=== PATIENT | female | born 1950 | race Caucasian/White ===

== ENCOUNTER 2016-11-10 07:58 | Outpatient (CLI) ==
[2014-12-02 16:01] VITALS: BMI 27.4
[2016-11-10 08:30] LABS: BASOPHILS % (AUTO) 0.2 % (0.0-3.0); EOSINOPHILS % (AUTO) 0.1 % (0.0-7.0); HEMATOCRIT 42.4 % (37.0-47.0); HEMOGLOBIN 14.1 g/dl (12.0-16.0); IMMATURE GRANULOCYTE % (AUTO) 1.3 % (0.0-5.0); LYMPHOCYTES # (AUTO) 2.5 K/uL (0.60-3.4); LYMPHOCYTES % (AUTO) 15.1 (10.0-50.0); MEAN CORPUSCULAR HEMOGLOBIN 30.1 pg (27.0-31.0); MEAN CORPUSCULAR HGB CONC 33.3 (31.8-35.4); MEAN CORPUSCULAR VOLUME 90.4 fl (81.0-99.0); MONOCYTES % (AUTO) 5.8 (0-10); NEUTROPHILS # (AUTO) 12.7 K/ul (2.0-6.9); NEUTROPHILS % (AUTO) 77.5; PLATELET COUNT 312 10^3/uL (140-440); RED BLOOD COUNT 4.69 10^6/ul (4.20-5.40); WHITE BLOOD COUNT 16.41 K/ul (4.6-10.2)
[2016-11-10 09:11] LABS: ALBUMIN 3.6 g/dL (3.4-5.0); ALBUMIN/GLOBULIN RATIO 1.06; BILIRUBIN,TOTAL 0.2 mg/dL (0.00-1.20); BUN/CREATININE RATIO 9.72; CALCIUM 9.6 mg/dL (8.2-10.2); CHOL/HDL RATIO 3.3 (4.5-5.5); CREATININE 0.72 mg/dL (0.60-1.30)
== END 2016-11-10 07:59 | disposition home or self-care (01) ==
LOC: LAB 07:58
PROVIDERS: ATTEND Nurse Practitioner Family
DX: E78.1 Pure hyperglyceridemia (principal); E78.5 Hyperlipidemia, unspecified; I10 Essential (primary) hypertension; J44.9 Chronic obstructive pulmonary disease, unspecified
CPT/HCPCS: 36415; 80053; 80061; 84443; 85025

== ENCOUNTER 2016-11-12 16:06 | Outpatient (CLI) | payer OTHER ==
[2014-12-02 16:01] VITALS: BMI 27.4
== END 2016-11-12 16:07 | disposition home or self-care (01) ==
LOC: CAR 16:06
PROVIDERS: ATTEND Nurse Practitioner Family
DX: R07.9 Chest pain, unspecified (principal)
CPT/HCPCS: 93005; 93010

== ENCOUNTER 2016-12-07 12:15 | Emergency (ER) | payer OTHER ==
[2016-12-07 12:20] VITALS: BP 148/9; TEMP 97.4; BMI 27.6
--- NOTE | 2016-12-07 12:57 | DI ---
EXAM: Three views of the left ankle. History: Left ankle pain. Findings: No acute fracture or dislocation. Subcutaneous edema. Hardware seen and appears grossly intact. Severe narrowing of the tibiotalar joint. Impression: 1. No acute osseous abnormality. 2. Severe arthritis of the tibiotalar joint. 3. Grossly intact hardware. 4. Subcutaneous edema
--- NOTE | 2016-12-07 13:01 | DI ---
Exam: Three x-rays of the left foot. Comparison: Left ankle x-rays performed on the same day. Reason for exam: Pain. FINDINGS: No acute fracture or dislocation. The joint spaces are relatively well maintained. Part ially imaged operative changes are seen in the medial and lateral malleolus. Impression: No acute fracture or dislocation is seen in the left foot.
--- NOTE | 2016-12-07 13:18 | ED.PDOC ---
General ED Provider: Dr. MARTHA ZELAYA Chief Complaint: Ankle Pain/Injury Stated Complaint: ankle, foot pain Time Seen by Physician: 12:16 (left ankle foot pain) Mode of Arrival: Walk-In Information Source: Patient Exam Limitations: No limitations Primary [facility] and Triage Documentation Reviewed and Agree: Yes Musculoskeletal Complaint Exam - Ankle/Foot Complaint/Exam Location of Injury: Reports: Left, Ankle, Foot Mechanism of Injury: Reports: No known trauma (chronic after and old injury ) Onset/Duration: 1 day Symptoms Are: Reports: Still present Onset of Pain: Reports: Hours Initial Severity: Moderate Current Severity: Moderate Location: Reports: Discrete (left medial ankle ) Character: Reports: Aching, Spasmodic, Stiffness (see photos) Alleviating: Reports: Rest, Position Aggravating: Reports: Movement, Weight bearing, Prolonged standing Able to Bear Weight: Yes Associated Signs and Symptoms: Denies: Swelling, Redness, Bruising, Fever, Weakness, Numbness, Tingling Gout Risk Factors: Reports: >40 years old Related Surgical History: Reports: None Achilles Tendon Abnormality: No Review of Systems - Review Of Systems Constitutional: Reports: No symptoms Eyes: Reports: No symptoms Ears, Nose, Mouth, Throat: Reports: No symptoms Respiratory: Reports: No symptoms Cardiac: Reports: No symptoms GI: Reports: No symptoms : Reports: No symptoms Musculoskeletal: Reports: Joint pain Skin: Reports: No symptoms Neurological: Reports: No symptoms Endocrine: Reports: No symptoms Hematologic/Lymphatic: Reports: No symptoms All Other Systems: Reviewed and Negative Past Medical History - Past Medical History Previously Healthy: No Endocrine: Reports: None Cardiovascular: Reports: Hypertension (carotid stenosis) Respiratory: Reports: COPD Hematological: Reports: None Gastrointestinal: Reports: None Genitourinary: Reports: None Neuro/Psych: Reports: None Musculoskeletal: Reports: Arthritis Cancer: Reports: None Last Menstrual Period: n/a - Surgical History General Surgical History: Reports: Unknown - Family History Family History: Reports: Unknown - Social History Smoking Status: Current every day smoker Hx Substance Use: No Alcohol Screening: None Physical Exam - Physical Exam Appearance: Well-appearing, No pain distress, Well-nourished Eyes: KAYODE, EOMI, Conjunctiva clear ENT: Ears normal, Nose normal, Oropharynx normal Respiratory: Airway patent, Breath sounds clear, Breath sounds equal, Respirations nonlabored Cardiovascular: RRR, Pulses normal, No rub, No murmur GI/: Soft, Nontender, No masses, Bowel sounds normal, No Organomegaly Musculoskeletal: Normal strength, ROM intact, No edema, No calf tenderness Skin: Warm, Dry, Normal color Neurological: Sensation intact, Motor intact, Reflexes intact, Cranial nerves intact, Alert, Oriented Psychiatric: Affect appropriate, Mood appropriate Interpretation - Radiology Interpretation Radiology Interpretation By: Radiologist Radiology Results: No acute changes Critical Care Note - Critical Care Note Total Time (mins): 0 Course - Course Orders, Labs, Meds: Lab Review 12/07/16 12:45 Uric Acid 4.0 Orders Category Date Time Status URIC ACID Stat LAB 12/07/16 12:30 Ordered ANKLE, LEFT MIN 3 VIEWS Stat RADS 12/07/16 12:30 Ordered FOOT, LEFT 3 VIEWS Stat RADS 12/07/16 12:30 Ordered Vital Signs: Temp Pulse Resp BP Pulse Ox 12/07/16 12:16 97.4 F L 87 20 148/9 H 95 Departure - Departure Time of Disposition: 13:17 (with lakhwinder at bedside i went over all films and submitted photos of the foot) Disposition: HOME SELF-CARE Discharge Problem: Ankle pain Instructions: Arthralgia (ED) Condition: Good Pt referred to PMD for follow-up: No Additional Instructions: Please call your Family Physician as soon as possible to schedule a follow-up appointment. Prescriptions: Hydrocodone/Acetaminophen [[place] 10-325 Tablet] 1 each PO Q8HR #7 tablet Allergies/Adverse Reactions: Allergies aspirin Adverse Reaction (Verified 12/07/16 12:20) Home Medications: Ambulatory Orders Hydrocodone/Acetaminophen [[place] 10-325 Tablet] 1 each PO PRN PRN 03/14/14 Hydrocodone/Acetaminophen [[place] 10-325 Tablet] 1 each PO Q8HR #7 tablet Disposition Discussed With: Patient
== END 2016-12-07 13:26 | disposition home or self-care (01) ==
LOC: ED 12:15
DX: M25.572 Pain in left ankle and joints of left foot (principal); F17.210 Nicotine dependence, cigarettes, uncomplicated
CPT/HCPCS: 36415; 84550; 99283

== ENCOUNTER 2017-02-06 18:47 | Emergency (ER) ==
[2017-02-06 18:47] VITALS: BMI 27.6
[2017-02-06 18:52] VITALS: BP 153/83; TEMP 97.6
[2017-02-06] MEDS: DECADRON 4 MG/ML SDV IM STA (19:11)
[2017-02-06] MEDS: DILAUDID 2 MG/ML SYRINGE IM STA (19:12)
[2017-02-06] MEDS: TORADOL IM STA (19:18)
--- NOTE | 2017-02-06 19:27 | CT ---
EXAM: CT scan cervical spine HISTORY: Neck pain COMPARISON: None. FINDINGS: Contiguous axial images obtained through the cervical spine utilizing 2-mm collimation. Sagittal and coronal reconstructions were imaged and reviewed.. There is straightening of the upper cervical spine. The vertebral bodies are normal in height. There is 2.4 mm anterolisthesis of C3 i n relation to C4 Degenerate disc disease is noted at C4-C5 and C5-C6 with milder changes of C6-C7.. At C3-C4 there is mild spondylitic bulge with bilateral neural foraminal narrowing secondary to u ncovertebral and left-sided facet arthropathy. At C4-C5 there is moderate leftward disc bulge which narrows the AP dimension of the central canal. There is bilateral neural foraminal narrowing. At C5-C6 spondylitic bulge narrows the AP dimension of the central canal and both neural foramen. At C 6-C7 the central canal foramen are patent. IMPRESSION: Straightening upper cervical spine. Degenerate disc disease C4-C5 and C6-C7 Multilevel central canal and foraminal stenosis as described.
--- NOTE | 2017-02-06 19:39 | ED.PDOC ---
General ED Provider: Dr. AGUS GRUBBS-ER Chief Complaint: Extremity Pain/Injury Stated Complaint: my neck hurts to move--it hurts to look up or to the right-- sees pain management and gets cervical injections q 3mos--denies cp or dyspnea Time Seen by Physician: 18:50 Mode of Arrival: Walk-In Information Source: Patient Exam Limitations: No limitations Primary Care Provider: RICHI HAN Nursing and Triage Documentation Reviewed and Agree: Yes Musculoskeletal Complaint Exam - Neck Pain Complaint/Exam Mechanism of Injury: Reports: No known trauma Onset/Duration: several mos Symptoms Are: Still present Timing: Intermittent Episodes Lasting: Weeks Initial Severity: Moderate Current Severity: Moderate Location: Reports: Discrete Character: Reports: Dull, Aching, Stiffness Aggravating: Reports: Position, Movement Alleviating: Reports: Position Associated Signs and Symptoms: Denies: Swelling, Redness, Bruising, Fever, Nuchal rigidity, Weakness, Headache, Paresthesia Related History: Reports: Previous neck injury Meningitis Risk Factors: Reports: None Cervical Spine Injury Risk Factors: Reports: None Carotid Bruit Present: No Pain on Passive Flexion: Yes Positive Kernig's Sign: No ROM Limited In: Present: Flexion, Extension, Right, Left, Side bending, Rotation Pain Located at: posterior neck Tenderness: Present: Paraspinal Radiates to: Present: Right arm. Absent: Left arm, Other Focal Weakness: Present: None Focal Sensory Loss: Reports: None Differential Diagnoses: Arthritis, Dystonia, Torticollis, Other Review of Systems - Review Of Systems Constitutional: Reports: No symptoms Eyes: Reports: No symptoms Ears, Nose, Mouth, Throat: Reports: No symptoms Respiratory: Reports: No symptoms Cardiac: Reports: No symptoms GI: Reports: No symptoms : Reports: No symptoms Musculoskeletal: Reports: Neck pain Skin: Reports: No symptoms Neurological: Reports: No symptoms Endocrine: Reports: No symptoms Hematologic/Lymphatic: Reports: No symptoms All Other Systems: Reviewed and Negative Past Medical History - Past Medical History Previously Healthy: No Endocrine: Reports: None Cardiovascular: Reports: Hypertension (carotid stenosis) Respiratory: Reports: COPD Hematological: Reports: None Gastrointestinal: Reports: None Genitourinary: Reports: None Neuro/Psych: Reports: None Musculoskeletal: Reports: Arthritis Cancer: Reports: None Last Menstrual Period: YEARS - Surgical History General Surgical History: Reports: Unknown - Family History Family History: Reports: Unknown - Social History Smoking Status: Current every day smoker Hx Substance Use: No Alcohol Screening: None Lives: With family - Immunizations Tetanus Shot up to Date: Yes Physical Exam - Physical Exam Appearance: Well-appearing, No pain distress, Well-nourished Pain Distress: Moderate Eyes: KAYODE ENT: Ears normal, Nose normal, Oropharynx normal Neck: Supple Respiratory: Airway patent, Breath sounds clear, Breath sounds equal, Respirations nonlabored Cardiovascular: RRR GI/: Soft, Nontender, No masses, Bowel sounds normal, No Organomegaly Musculoskeletal: Limited ROM Skin: Warm, Dry, Normal color Neurological: Sensation intact, Motor intact, Reflexes intact, Cranial nerves intact, Alert, Oriented Psychiatric: Affect appropriate Interpretation - Radiology Interpretation Radiology Interpretation By: Radiologist Radiology Results: Positive Exam Interpreted: CT Scan Re-Evaluation - Re-Evaluation Time of Re-Evaluation: 19:45 Status: Improved Vital Signs Stable: Yes Pain Level: 2 Appearance: NAD Lungs: Clear Skin: Warm and Dry Neuro: Alert and Oriented X3 CV: RRR Critical Care Note - Critical Care Note Total Time (mins): 0 Course - Course Orders, Labs, Meds: Orders Category Date Time Status Dexamethasone 4 mg/ml Inj [Decadron 4 mg/ml Sdv] MEDS 02/06/17 19:03 Discontinued 4 mg IM ONCE STA Hydromorphone HCl/Pf [Dilaudid 2 mg/ml Syringe] MEDS 02/06/17 19:03 Discontinued 2 mg IM ONCE STA Ketorolac Tromethamine [Toradol] MEDS 02/06/17 19:03 Discontinued 60 mg IM ONCE STA CT CERVICAL SPINE W/O CONTRAST Stat RADS 02/06/17 19:04 Completed Medications Discontinued Medications Generic Name Dose Route Start Last Admin Trade Name Freq PRN Reason Stop Dose Admin Dexamethasone Sodium Phosphate 4 mg 02/06/17 19:03 02/06/17 19:11 Decadron 4 Mg/Ml Sdv IM 02/06/17 19:04 4 mg ONCE STA Administration Hydromorphone HCl 2 mg 02/06/17 19:03 02/06/17 19:12 Dilaudid 2 Mg/Ml Syringe IM 02/06/17 19:04 2 mg ONCE STA Administration Ketorolac Tromethamine 60 mg 02/06/17 19:03 02/06/17 19:18 Toradol IM 02/06/17 19:04 60 mg ONCE STA Administration Vital Signs: Temp Pulse Resp BP Pulse Ox 02/06/17 18:47 97.6 F 72 20 153/83 H 94 L Departure - Departure Time of Disposition: 19:40 Disposition: HOME SELF-CARE Discharge Problem: Cervical spinal stenosis Instructions: Cervical Spinal Stenosis (ED), Degenerative Disc Disease (ED) Condition: Good Pt referred to PMD for follow-up: Yes Additional Instructions: f/u with pain managment or call pcp if pain worsens or if any change in symptoms Allergies/Adverse Reactions: Allergies aspirin Adverse Reaction (Verified 02/06/17 18:52) Home Medications: Ambulatory Orders Hydrocodone/Acetaminophen [[place] 10-325 Tablet] 1 each PO PRN PRN 03/14/14 Disposition Discussed With: Patient
== END 2017-02-06 20:03 | disposition home or self-care (01) ==
LOC: ED 18:47
DX: M48.02 Spinal stenosis, cervical region (principal); M50.321 Other cervical disc degeneration at C4-C5 level; M50.323 Other cervical disc degeneration at C6-C7 level; F17.210 Nicotine dependence, cigarettes, uncomplicated
CPT/HCPCS: 96372; 99283

== ENCOUNTER 2017-02-25 12:35 | Outpatient (CLI) ==
[2017-02-25 12:50] LABS: CREATININE 0.7 mg/dL (0.60-1.30)
== END 2017-02-25 12:36 | disposition home or self-care (01) ==
LOC: LAB 12:35
PROVIDERS: ATTEND Nurse Practitioner Family
DX: I10 Essential (primary) hypertension (principal); Y63.3 Inadvertent exposure of patient to radiation during medical care
CPT/HCPCS: 36415; 82565

== ENCOUNTER 2017-05-30 10:09 | Outpatient (CLI) ==
[2017-05-30 10:22] LABS: BASOPHILS % (AUTO) 0.3 % (0.0-3.0); EOSINOPHILS # (AUTO) 0.1 K/ul (0.0-0.7); EOSINOPHILS % (AUTO) 0.7 % (0.0-7.0); HEMATOCRIT 42.9 % (37.0-47.0); HEMOGLOBIN 14.2 g/dl (12.0-16.0); IMMATURE GRANULOCYTE % (AUTO) 0.4 % (0.0-5.0); LYMPHOCYTES # (AUTO) 3.1 K/uL (0.60-3.4); LYMPHOCYTES % (AUTO) 21.5 (10.0-50.0); MEAN CORPUSCULAR HEMOGLOBIN 30.5 pg (27.0-31.0); MEAN CORPUSCULAR HGB CONC 33.1 (31.8-35.4); MEAN CORPUSCULAR VOLUME 92.1 fl (81.0-99.0); MONOCYTES # (AUTO) 0.9 K/uL (0.4-2.0); MONOCYTES % (AUTO) 6.3 (0-10); NEUTROPHILS % (AUTO) 70.8; PLATELET COUNT 320 10^3/uL (140-440); RED BLOOD COUNT 4.66 10^6/ul (4.20-5.40); WHITE BLOOD COUNT 14.18 K/ul (4.6-10.2)
[2017-05-30 10:43] LABS: ALBUMIN 3.4 g/dL (3.4-5.0); ALBUMIN/GLOBULIN RATIO 0.89; ANION GAP 11.9; BILIRUBIN,TOTAL 0.28 mg/dL (0.00-1.20); BUN/CREATININE RATIO 10.81; CALCIUM 9.7 mg/dL (8.2-10.2); CHOL/HDL RATIO 3.9 (4.5-5.5); CREATININE 0.74 mg/dL (0.60-1.30); POTASSIUM 3.9 mmol/L (3.5-5.10); TOTAL PROTEIN 7.2 g/dL (5.8-8.1)
== END 2017-05-30 10:10 | disposition home or self-care (01) ==
LOC: LAB 10:09
PROVIDERS: ATTEND Nurse Practitioner Family
DX: J44.9 Chronic obstructive pulmonary disease, unspecified (principal); E78.5 Hyperlipidemia, unspecified; R73.9 Hyperglycemia, unspecified
CPT/HCPCS: 36415; 80053; 80061; 83036; 85025

== ENCOUNTER 2017-05-31 08:46 | Outpatient (CLI) ==
--- NOTE | 2017-05-31 10:11 | CT ---
EXAM: CT of the chest with and without contrast History: Follow-up lung nodules. lung cancer Comparison: Chest CT 04/29/2016 Technique: Multiplanar CT images through the thorax were obtained with and without the administratio n of IV contrast Findings: Heart size is normal. Coronary calcifications. No pericardial effusion. Great vessels a re unremarkable. Calcified granulomas again seen within the thorax. No pathologically enlarged thor acic lymph nodes. Emphysema again identified. No consolidation. No pleural fluid and no pneumothor ax. No change in the pulmonary micronodules. No developing lung nodules. With the visualized upper abdomen, no acute findings. The liver is probably fatty. No acute osseous abnormalities. Impression: 1. No acute cardiopulmonary process. 2. Coronary artery disease. 3. No change in the pulmonary micronodules. No developing lung nodules. 4. Emphysema. 5. Probable fatty liver
== END 2017-05-31 08:47 | disposition home or self-care (01) ==
LOC: RAD 08:46
PROVIDERS: ATTEND Nurse Practitioner Family
DX: Z85.118 Personal history of other malignant neoplasm of bronchus and lung (principal); Z90.2 Acquired absence of lung [part of]

== ENCOUNTER 2017-08-14 15:37 | Emergency (ER) | payer OTHER ==
[2017-08-14 15:44] VITALS: BP 111/62; TEMP 98.5; BMI 26.2
--- NOTE | 2017-08-14 17:12 | CT ---
EXAM: CT chest without contrast HISTORY: Cough. Lung cancer history. TECHNIQUE: Multi-slice transaxial helical. Coronal and sagital reformations were performed. COMPARISON: 05/31/2017. FINDINGS: The heart is normal in size. Coronary artery calcifications are present. Calcified plaques are pres ent within the thoracic aorta. Mediastinal and perihilar calcified granulomas/lymph nodes are presen t. Lymph node on the upper limits of normal in size in the pretracheal location measures 9 [address] in shobha rt axis. Subcarinal enlarged lymph node measuring up to 11 mm is present which appears partly calcif ied. Visualized thyroid appears unremarkable. There is no axillary adenopathy. Small hiatal hernia is pr esent. The gallbladder appears dilated measuring up to 5.3 cm in diameter. Calcified granulomas are present within the spleen. Pancreas appears atrophic. Otherwise the partially imaged upper abdomen appears unremarkable within the confines of a noncontrast exam. Left-sided thoracotomy changes are a gain seen. No osteoblastic or osteolytic lesion is seen. Mild to moderate emphysematous changes of the lungs are present. Bilateral scattered calcified granu gracie are present. The left upper lung nodule measures 6 mm in diameter, previously measuring 4 mm ( axial image 28). The basilar 3.5 mm pulmonary nodule is present which may be minimally increased sinc e prior exam, previously measuring up to 2.6 mm. Right basilar dependent atelectasis is present. rway thickening is present. No definite focal airspace opacity or pleural effusion is seen. IMPRESSION: 1. No acute cardiopulmonary findings. 2. Interval enlarged of left upper lobe pulmonary nodule measuring 6 mm, previously 4 mm. Worsening metastatic disease cannot be excluded. Recommend follow-up CT chest in 3 months. 3. Questionable minimally increased size of left basilar pulmonary nodule. This can be also followe d on the subsequent imaging. 4. Mild to moderate pulmonary emphysema. 5. Central airway thickening which can be seen with bronchitis/bronchiolitis. 6. Atherosclerosis including coronary disease. 7. Dilation of the gallbladder. This can be related n.p.o. status versus acute cholecystitis. Yeny elate with any right upper quadrant abdominal pain. 8. Small hiatal hernia. 9. Mild mediastinal adenopathy which is nonspecific.
--- NOTE | 2017-08-14 17:35 | ED.PDOC ---
General ED Provider: Dr. MARTHA ZELAYA Chief Complaint: Respiratory Complaint Stated Complaint: flu like symptoms Time Seen by Physician: 15:40 (seen with nursing staff and PA student) Mode of Arrival: Walk-In Information Source: Patient Exam Limitations: No limitations Primary Care Provider: RICHI HAN Nursing and Triage Documentation Reviewed and Agree: Yes Reviewed sepsis parameters & appropriate labs ordered?: Yes System Inflammatory Response Syndrome: Not Applicable Sepsis Protocol: For patient's 13 years and over: Temp is 96.8 and below OR 101 and greater Pulse >90 BPM Resp >20/minute Acutely Altered Mental Status Are patient's symptoms suggestive of a new infection, such as: -Pneumonia -Skin, Soft Tissue -Endocarditis -UTI -Bone, Joint Infection -Implantable Device -Acute Abdominal Infection -Wound Infection -Meningitis -Blood Stream Catheter Infection -Unknown System Inflammatory Response Syndrome: Not Applicable Respiratory Complaint Exam - Respiratory Complaint/Exam Onset/Duration: 4 days Symptoms Are: Still present Timing: Intermittent Initial Severity: Mild Current Severity: Mild Location: Nose, Throat, Chest Character: Reports: Non-productive cough Aggravating: Reports: URI Alleviating: Reports: Spontaneous resolution Associated Signs and Symptoms: Reports: URI, Nasal congestion. Denies: Rapid breathing, Dyspnea, Fever, Chills, Chest pain, Pleuritic chest pain, Wheezing, Hemoptysis, Dizziness, Calf pain, Calf swelling, Edema, Hoarseness, Sinus discomfort, Vomiting, Sore throat, Weight loss, Decreased oral intake, Increased thirst, Increased appetite, Increased urination Related History: Reports: Similar episode History of Healthcare-Acquired Pneumonia: No Related Surgical History: Reports: None Pseudomonas Risk Factors: Reports: None Tuberculosis Risk Factors: Reports: None Status Asthmaticus Risk Factors: Reports: None Home Oxygen Use: No Recent Stress Test: No Recent Echo/LV Function: No Current Antibiotic Use: No Current Asthma Medication Use: No Respiratory Distress: None Inadequate Respiratory Effort: No Dysphagia Present: No Stridor Present: No JVD Present: No Accessory Muscle Use: No Retractions: Not Present Sinus Tenderness: None Grunting Respirations: No Kussmaul Respirations: No Differential Diagnoses: Pneumonia, Bronchitis Review of Systems - Review Of Systems Constitutional: Reports: Malaise, Weakness Eyes: Reports: No symptoms Ears, Nose, Mouth, Throat: Reports: No symptoms Respiratory: Reports: Cough Cardiac: Reports: No symptoms GI: Reports: No symptoms : Reports: No symptoms Musculoskeletal: Reports: No symptoms Skin: Reports: No symptoms Neurological: Reports: No symptoms Endocrine: Reports: No symptoms Hematologic/Lymphatic: Reports: No symptoms All Other Systems: Reviewed and Negative Past Medical History - Past Medical History Previously Healthy: No Endocrine: Reports: None Cardiovascular: Reports: Hypertension (carotid stenosis) Respiratory: Reports: COPD Hematological: Reports: None Gastrointestinal: Reports: None Genitourinary: Reports: None Neuro/Psych: Reports: None Musculoskeletal: Reports: Arthritis Cancer: Reports: None Last Menstrual Period: menopause - Surgical History General Surgical History: Reports: Unknown - Family History Family History: Reports: Unknown - Social History Smoking Status: Current every day smoker Hx Substance Use: No Alcohol Screening: None Physical Exam - Physical Exam Appearance: Well-appearing, No pain distress, Well-nourished Eyes: KAYODE, EOMI, Conjunctiva clear ENT: Ears normal, Nose normal, Oropharynx normal Respiratory: Airway patent, Breath sounds clear, Breath sounds equal, Respirations nonlabored Cardiovascular: RRR, Pulses normal, No rub, No murmur GI/: Soft, Nontender, No masses, Bowel sounds normal, No Organomegaly Musculoskeletal: Normal strength, ROM intact, No edema, No calf tenderness Skin: Warm, Dry, Normal color Neurological: Sensation intact, Motor intact, Reflexes intact, Cranial nerves intact, Alert, Oriented Psychiatric: Affect appropriate, Mood appropriate Interpretation - Radiology Interpretation Radiology Interpretation By: Radiologist Radiology Results: No acute changes Exam Interpreted: CT Scan Critical Care Note - Critical Care Note Total Time (mins): 0 Course - Course Hematology/Chemistry: 08/14/17 16:45 08/14/17 16:45 Orders, Labs, Meds: Lab Review 08/14/17 08/14/17 08/14/17 15:51 16:45 16:45 WBC 5.72 RBC 4.59 Hgb 14.1 Hct 42.9 MCV 93.5 MCH 30.7 MCHC 32.9 RDW Coeff of [place] 13.6 Plt Count 170 Immature Gran % (Auto) 0.5 Neut % (Auto) 67.4 Lymph % (Auto) 23.3 [place] % (Auto) 8.4 Eos % (Auto) 0.2 Baso % (Auto) 0.2 Immature Gran # (Auto) 0.0 Neut # 3.9 Lymph # 1.3 [place] # 0.5 Eos # 0.0 Baso # 0.0 Sodium 136 Potassium 3.7 Chloride 103 Carbon Dioxide 24 Anion Gap 12.7 BUN 8 Creatinine 0.71 Estimated GFR (MDRD) 82.00 BUN/Creatinine Ratio 11.26 Glucose 89 Calcium 8.7 Total Bilirubin < 0.3 AST 49 H ALT 36 Alkaline Phosphatase 86 Total Protein 6.9 Albumin 3.4 Globulin 3.5 Albumin/Globulin Ratio 0.97 Influenza A (Rapid) Negative by naat Influenza B (Rapid) Positive by naat H Orders Category Date Time Status BLOOD CULTURE Stat LAB 08/14/17 16:31 Ordered CBC W/ AUTO DIFF Stat LAB 08/14/17 16:31 Ordered COMPREHENSIVE METABOLIC PANEL Stat LAB 08/14/17 16:31 Ordered FLU A & B MOLECULAR [FLU A/B MOLECULAR] Stat LAB 08/14/17 15:51 Received MOLECULAR GROUP A STREP Stat LAB 08/14/17 15:51 Received URINALYSIS C & S IF INDICATED Stat LAB 08/14/17 16:[address] CHEST W/O CONTRAST Stat RADS 08/14/17 16:34 Ordered Vital Signs: Temp Pulse Resp BP Pulse Ox 08/14/17 15:37 98.5 F 87 20 111/62 88 L Departure - Departure Time of Disposition: 17:34 Disposition: HOME SELF-CARE Discharge Problem: Influenza Instructions: Influenza (ED) Condition: Good Pt referred to PMD for follow-up: Yes IPMP verified?: Yes Additional Instructions: Please call your Family Physician as soon as possible to schedule a follow-up appointment. Allergies/Adverse Reactions: Allergies aspirin Adverse Reaction (Verified 08/14/17 15:47) Home Medications: Ambulatory Orders Hydrocodone/Acetaminophen [[place] 10-325 Tablet] 1 each PO PRN PRN 03/14/14 Gabapentin [Neurontin] 400 mg PO QID tab-cap 02/25/17
== END 2017-08-14 17:40 | disposition home or self-care (01) ==
LOC: ED 15:37
DX: J10.1 Influenza due to other identified influenza virus with other respiratory manifestations (principal); F17.210 Nicotine dependence, cigarettes, uncomplicated
CPT/HCPCS: 36415; 80053; 85025; 87040; 87502; 87651; 99283

== ENCOUNTER 2017-11-15 11:46 | Outpatient (CLI) | payer OTHER | END 2017-11-15 11:47 | disposition home or self-care (01) | LOC: CAR 11:46 | PROVIDERS: ATTEND Nurse Practitioner Family | DX: R07.89 Other chest pain (principal) | CPT/HCPCS: 93005; 93010 ==

== ENCOUNTER 2018-04-03 14:15 | Outpatient (CLI) | payer OTHER | END 2018-04-03 14:16 | disposition home or self-care (01) | LOC: RHC-LAB 14:15 | PROVIDERS: ATTEND Nurse Practitioner Family | DX: I10 Essential (primary) hypertension (principal); Z86.73 Personal history of transient ischemic attack (TIA), and cerebral infarction without residual deficits; E78.1 Pure hyperglyceridemia; E78.5 Hyperlipidemia, unspecified | CPT/HCPCS: 36415; 80053; 80061; 84443; 85025 ==

== ENCOUNTER 2018-12-04 12:06 | Outpatient (CLI) | payer OTHER | END 2018-12-04 12:07 | disposition home or self-care (01) | LOC: RHC-LAB 12:06 | PROVIDERS: ATTEND Nurse Practitioner Family | DX: I10 Essential (primary) hypertension (principal); E78.5 Hyperlipidemia, unspecified ==

== ENCOUNTER 2021-06-08 11:31 | Observation (INO) ==
[2021-06-08] MEDS ORDERED: DUONEB NEB STA (11:38)
[2021-06-08] MEDS ORDERED: SODIUM CHLORIDE 1,000 ML IV STA (11:38)
[2021-06-08] MEDS ORDERED: DECADRON IVP ONE (11:38)
[2021-06-08 11:41] VITALS: BMI 20.6
--- NOTE | 2021-06-08 11:53 | ED.PDOC ---
General ED Provider: Dr. ARTHUR GALLEGOS Chief Complaint: Respiratory Complaint Stated Complaint: Pt presents with cough, fever and SOB. Pt is a smoker with COPD. She has recently been around her daughter who has COVID. She is vaccinated but over the last 3-4 days she has had sxs. She is concerned that she may have COVID. She has a cough and chest soreness on the left side. She denies any pain on inspiration. Denies any N/V/AP. Nothing else makes the sxs better or worse and they are mild but persistent in nature. Time Seen by Provider: 06/08/21 11:33 Information Source: Patient Primary Care Provider: UMESH RICH PA-C Nursing and Triage Documentation Reviewed and Agree: Yes Does patient meet sepsis criteria?: No If yes, has appropriate treatment been initiated?: No System Inflammatory Response Syndrome: Not Applicable Sepsis Protocol: For patient's 13 years and over: Temp is 96.8 and below OR 101 and greater Pulse >90 BPM Resp >20/minute Acutely Altered Mental Status Are patient's symptoms suggestive of a new infection, such as: -Pneumonia -Skin, Soft Tissue -Endocarditis -UTI -Bone, Joint Infection -Implantable Device -Acute Abdominal Infection -Wound Infection -Meningitis -Blood Stream Catheter Infection -Unknown Review of Systems Review Of Systems Constitutional: Reports Chills and Fever Eyes: Reports No symptoms Ears, Nose, Mouth, Throat: Reports No symptoms Respiratory: Reports Cough, Short of air and Wheezing Cardiac: Reports Chest pain (left chest discomfort) GI: Reports No symptoms : Reports No symptoms Musculoskeletal: Reports No symptoms Skin: Reports No symptoms Neurological: Reports No symptoms Endocrine: Reports No symptoms Hematologic/Lymphatic: Reports No symptoms All Other Systems: Reviewed and Negative [facility] Medical History Cataract Chronic obstructive pulmonary disease Colonoscopy refused COPD exacerbation COPD exacerbation Cough Fever GERD (gastroesophageal reflux disease) Heart palpitations Hypertension Intermittent chest pain Low grade fever Nerve pain Overactive bladder Polycystic ovaries Shortness of breath Tobacco use Family History Grandfather/Grandmother Diabetes aunt Diabetes FATHER Lung cancer Mother COPD (chronic obstructive pulmonary disease) BROTHER No problems noted. BROTHER Cardiac disease BROTHER Cirrhosis of liver BROTHER No problems noted. SISTER No problems noted. 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 Current occupational exposures/hazards: No Pets and animals: Yes Leisure activites: music History of recent travel: No Sexually active: No Do you think of yourself as: straight/heterosexual Current gender identity: female Seatbelt use: always Helmet use: No Drives intoxicated or rides with intoxicated reach lift truck driver: No Water heater temperature set < 120 degrees: Yes Working smoke detector in home: Yes Fire extinguisher in home: No Carbon monoxide detector in home: No Firearms in home: No Surgical History History of lobectomy of lung History of musculoskeletal system surgery History of tubal ligation Status post surgical removal of malignant neoplasm of skin Status post tonsillectomy Female Reproductive History Menstrual Hx Hysterectomy: No Hx Tubal Ligation: No Physical Exam Physical Exam Appearance: Reports Well-appearing, No pain distress and Well-nourished Ill-appearing: Mild Pain Distress: None Eyes: Reports KAYODE, EOMI and Conjunctiva clear ENT: Reports Not Examined Neck: Supple Respiratory: Reports Airway patent, Breath sounds equal, Respirations nonlabored and Wheezes (bilateral insp/exp wheezing without pain on inspiration) Cardiovascular: Reports RRR, Pulses normal, No rub and No murmur GI/: Reports Soft, Nontender, No masses, Bowel sounds normal and No Org anomegaly Musculoskeletal: Reports Normal strength, ROM intact, No edema and No calf tenderness Skin: Reports Warm, Dry and Normal color Neurological: Reports Sensation intact, Motor intact, Reflexes intact, Cranial nerves intact, Alert and Oriented Psychiatric: Reports Affect appropriate and Mood appropriate Interpretation EKG Interpretation Time of EKG #1: 12:00 Rate: Tachy Rhythm: Sinus Ectopy: None [place]: Left ST Segment: Normal Interpretation: Left atrial enlargement Critical Care Note Critical Care Note Total Critical Care Time (mins): 0 Course Course Hematology/Chemistry: 06/08/21 11:56 12 11:56 Orders, Labs, Meds: Lab Review 06/08/21 06/08/21 12 11:56 11:56 12:00 WBC 8.32 RBC 3.99 L Hgb 12.1 Hct 37.3 MCV 93.5 MCH 30.3 MCHC 32.4 RDW Coeff of [place] 12.7 Plt Count 265 Immature Gran % (Auto) 0.4 Neut % (Auto) 82.2 H Lymph % (Auto) 8.2 L [place] % (Auto) 8.8 Eos % (Auto) 0.0 Baso % (Auto) 0.4 Neut # (Auto) 6.9 Lymph # (Auto) 0.7 [place] # (Auto) 0.7 Eos # (Auto) 0.0 Baso # (Auto) 0.0 Immature Gran # (Auto) 0.0 Sodium 135.8 Potassium 4.27 Chloride 103.7 Carbon Dioxide 26.0 Anion Gap 10.37 BUN 8.2 Creatinine 0.53 L Estimated GFR (MDRD) 113.00 BUN/Creatinine Ratio 15.47 Glucose 112.4 H Calcium 8.56 Magnesium 1.84 Total Bilirubin 0.43 AST 26.6 ALT 15.6 Alkaline Phosphatase 76.4 Total Creatine Kinase 77.3 Troponin I 0.412 H Total Protein 7.14 Albumin 4.02 Globulin 3.12 Albumin/Globulin Ratio 1.28 Amylase 35.5 Lipase 18.2 L Adenovirus (PCR) Not detected B. pertussis DNA (PCR) Not detected B.parapertussis DNA PCR Not detected C. pneumoniae DNA (PCR) Not detected Coronavirus OC43 (PCR) Not detected Coronavirus HKU1 (PCR) Not detected Coronavirus 229E (PCR) Not detected Coronavirus NL63 (PCR) Not detected Human Metapneumovir PCR Not detected Influenza Type A (PCR) Not detected Influenza B (RT-PCR) Not detected M. pneumoniae (PCR) Not detected Parainfluenza 1 (PCR) Not detected Parainfluenza 2 (PCR) Not detected Parainfluenza 3 (PCR) Not detected Parainfluenza 4 (PCR) Not detected RSV (PCR) Detected H Entero/Rhino (PCR) Not detected SARS-CoV-2 (PCR) Not detected Orders Category Date Time Status EKG-(ED ONLY) Stat CARDIO 06/08/21 11:39 Completed NEBULIZER TREATMENT Stat CARDIO 06/08/21 11:39 Completed AMYLASE Stat LAB 06/08/21 11:56 Completed CBC W/ AUTO DIFF Stat LAB 06/08/21 11:56 Completed COMPREHENSIVE METABOLIC PANEL Stat LAB 06/08/21 11:56 Completed CREATINE KINASE Stat LAB 06/08/21 11:56 Completed LIPASE Stat LAB 06/08/21 11:56 Completed MAGNESIUM Stat LAB 06/08/21 11:56 Completed RESPIRATORY PANEL 2.1 (PCR) Stat LAB 06/08/21 12:00 Completed TROPONIN I Stat LAB 06/08/21 11:56 Completed Aspirin [Aspirin Chewable] MEDS 06/08/21 13:44 Stat 324 mg PO ONCE STA Dexamethasone Sod Phosphate [Decadron] MEDS 06/08/21 11:38 Discontinued 10 mg IVP ONCE ONE Ipratropium/Albuterol Neb [Duoneb] MEDS 06/08/21 11:38 Discontinued 3 ml NEB ONCE STA Sodium Chloride 0.9% [Sodium Chloride] 1,000 ml MEDS 06/08/21 11:38 Discontinued IV BOLUS CHEST, 1V AP ONLY Stat RADS 06/08/21 11:39 Completed Medications Discontinued Medications Generic Name Dose Route Start Last Admin Trade Name Freq PRN Reason Stop Dose Admin Albuterol/Ipratropium 3 ml 06/08/21 11:38 06/08/21 12:04 Ipratropium/Albuterol Vial.Neb NEB 06/08/21 11:39 3 ml ONCE STA Administration Dexamethasone Sodium Phosphate 10 mg 06/08/21 11:38 06/08/21 11:45 Dexamethasone Sod Phos 10 Mg/Ml Inj IVP 06/08/21 11:39 10 mg ONCE ONE Administration Sodium Chloride 1,000 mls @ 1,000 mls/hr 06/08/21 11:38 06/08/21 11:45 Sodium Chloride IV 06/08/21 12:37 1,000 mls/hr BOLUS STA Administration Vital Signs: Temp Pulse Resp BP Pulse Ox 06/08/21 11:36 97.3 F L 117 H 20 100/66 96 Discharge Plan Discharge Patient Disposition: TSF SHORT-TRM HOSP Discharge Problem: Acute respiratory distress, Respiratory syncytial virus (RSV), COPD with acute exacerbation, Elevated troponin I level Prescriptions: No Action hydrocodone-acetaminophen [[place]] 1 EACH tablet 1 ea PO PRN PRN (Reason: pain) 0RF Rx Instructions: Dr. Hall gabapentin [Neurontin] 400 MG capsule 400 mg PO QID 0RF bupropion HCl 100 mg tablet 100 mg PO DAILY 0RF Rx Instructions: TAKE 1 TABLET BY MOUTH THREE TIMES DAILY Trelegy Ellipta 100-62.5-25 mcg blister with device 1 inh inhalation Q24H Qty: 28 0RF albuterol sulfate 2.5 mg /3 mL (0.083 %) solution for nebulization 2.5 mg inhalation Q4-6H PRN (Reason: shortness of breath or wheezing) Qty: 180 1RF albuterol sulfate [Ventolin HFA] 90 mcg/actuation HFA aerosol inhaler 2 puff inhalation Q4-6H PRN (Reason: shortness of breath or wheezing) Qty: 18 0RF omeprazole 20 mg capsule,delayed release(/EC) See Rx Instructions .ROUTE .COMPLEX Qty: 90 1RF Dose Instruction: TAKE 1 CAPSULE BY MOUTH DAILY Rx Instructions: TAKE 1 CAPSULE BY MOUTH DAILY lisinopril 20 mg tablet 20 mg PO BID Qty: 180 1RF fenofibrate 54 mg tablet 54 mg PO DAILY Qty: 90 1RF atorvastatin [Lipitor] 20 mg tablet 20 mg PO DAILY Qty: 90 1RF clopidogrel [Plavix] 75 mg tablet 75 mg PO DAILY 90 Days Qty: 90 1RF benzonatate 200 mg capsule 200 mg PO BID-TID PRN (Reason: cough) Qty: 60 0RF ED Provider: ARTHUR GALLEGOS Condition: Fair Physician Progress Note: 1:25 PM: I reviewed results. CBC is unremarkable. Chems show no acute abnormalities. Her Trop is 0.41 with a normal CK. CXR shows COPD witout any acute consolidation. Resp panel is positive for RSV. On reeval, she is still SOB. O2 drops to 92-93 of [place] O2. I suspect she has RSV which triggered her COPD exacerbation which then put strain on her heart causing the elevated trop i. But given her sxs and findings, she needs to be admitted for treatment and further workup. Our loss prevention and safety manager is not around so she will need to be trans ferred to a facility that has cardiology for further evaluation. We will start calling around now. 1:45 PM: I spoke with Dr. Staples at [facility] and he agrees to accept the patient in transfer.
[2021-06-08 12:05] LABS: BASOPHILS % (AUTO) 0.4 % (0.0-3.0); HEMATOCRIT 37.3 % (37.0-47.0); HEMOGLOBIN 12.1 g/dl (12.0-16.0); IMMATURE GRANULOCYTE % (AUTO) 0.4 % (0.0-5.0); LYMPHOCYTES # (AUTO) 0.7 K/uL (0.60-3.4); LYMPHOCYTES % (AUTO) 8.2 (10.0-50.0); MEAN CORPUSCULAR HEMOGLOBIN 30.3 pg (27.0-31.0); MEAN CORPUSCULAR HGB CONC 32.4 (31.8-35.4); MEAN CORPUSCULAR VOLUME 93.5 fl (81.0-99.0); MONOCYTES # (AUTO) 0.7 K/uL (0.4-2.0); MONOCYTES % (AUTO) 8.8 (0-10); NEUTROPHILS # (AUTO) 6.9 K/ul (2.0-6.9); NEUTROPHILS % (AUTO) 82.2 % (42.2-75.2); PLATELET COUNT 265 10^3/uL (140-440); RDW COEFFICIENT OF VARIATION 12.7 % (11.6-14.8); RED BLOOD COUNT 3.99 10^6/ul (4.20-5.40); WHITE BLOOD COUNT 8.32 K/ul (4.6-10.2)
[2021-06-08 12:17] LABS: ALANINE AMINOTRANSFERASE 15.6 U/L (0-35); ALBUMIN 4.02 g/dL (3.5-5.0); ALKALINE PHOSPHATASE 76.4 U/L (53-141); AMYLASE 35.5 U/L (30-110); ASPARTATE AMINO TRANSFERASE 26.6 U/L (14-36); BILIRUBIN,TOTAL 0.43 mg/dL (0.2-1.3); BLOOD UREA NITROGEN 8.2 mg/dL (7-17); CALCIUM 8.56 mg/dL (8.4-10.2); CHLORIDE 103.7 mmol/L (98-107); CREATINE KINASE 77.3 U/L (30-135); CREATININE 0.53 mg/dL (0.60-1.30); GLUCOSE 112.4 mg/dL (74-106); LIPASE 18.2 U/L (23-300); MAGNESIUM 1.84 mg/dL (1.6-2.3); POTASSIUM 4.27 mmol/L (3.5-5.1); SODIUM 135.8 mmol/L (134.5-145); TOTAL PROTEIN 7.14 g/dL (6.3-8.2)
[2021-06-08 12:20] LABS: BORDETELLA PARAPERTUSSIS (PCR) NOT DETECTED (NOT DETECT); BORDETELLA PERTUSSIS (PCR) NOT DETECTED (NOT DETECT); CHLAMYDIA PNEUMONIAE (PCR) NOT DETECTED (NOT DETECT); CORONAVIRUS 229E (PCR) NOT DETECTED (NOT DETECT); CORONAVIRUS HKU1 (PCR) NOT DETECTED (NOT DETECT); CORONAVIRUS NL63 (PCR) NOT DETECTED (NOT DETECT); CORONAVIRUS OC43 (PCR) NOT DETECTED (NOT DETECT); HUMAN METAPNEUMOVIRUS (PCR) NOT DETECTED (NOT DETECT); HUMAN RHINOVIRUS/ENTEROV (PCR) NOT DETECTED (NOT DETECT); INFLUENZA B (PCR) NOT DETECTED (NOT DETECT); MYCOPLASMA PNEUMONIAE (PCR) NOT DETECTED (NOT DETECT); PARAINFLUENZA VIRUS 1 (PCR) NOT DETECTED (NOT DETECT); PARAINFLUENZA VIRUS 2 (PCR) NOT DETECTED (NOT DETECT); PARAINFLUENZA VIRUS 3 (PCR) NOT DETECTED (NOT DETECT); PARAINFLUENZA VIRUS 4 (PCR) NOT DETECTED (NOT DETECT); SARS_COV_2 (PCR) NOT DETECTED (NOT DETECT)
[2021-06-08 12:28] LABS: TROPONIN I 0.412 ng/ml (0.0000-0.120)
--- NOTE | 2021-06-08 12:35 | DI ---
EXAM: Single frontal view of the chest HISTORY: Cough. COMPARISON: Chest x-ray 06/23/[address] chest 06/13/2018 FINDINGS: Cardiomediastinal silhouette is unremarkable with atherosclerotic disease. There is no pne umothorax or effusion. There is no consolidation, nodule or mass. Lungs are hyperinflated. The oss eous structures are unremarkable. IMPRESSION: Hyperinflated lungs suggestive of chronic obstructive pulmonary disease with no acute ca rdiopulmonary process or consolidation.
[2021-06-08 13:10] LABS: ADENOVIRUS (PCR) NOT DETECTED (NOT DETECT); RESPIRATORY SYNCYTIAL V (PCR) DETECTED (NOT DETECT)
[2021-06-08] MEDS ORDERED: ASPIRIN CHEWABLE PO STA (13:44)
[2021-06-08] MEDS ORDERED: PRILOSEC PO SCH (20:00)
[2021-06-08] MEDS: DUONEB NEB SCH (21:00)
[2021-06-08] MEDS ORDERED: NEURONTIN ONE ×3 (21:55→22:04)
[2021-06-08] MEDS ORDERED: PRILOSEC ONE (21:55)
[2021-06-08] MEDS: ZESTRIL PO SCH (21:59)
[2021-06-08] MEDS ORDERED: SOLU-MEDROL 125 MG ONE (22:07)
[2021-06-08] MEDS: NEURONTIN PO SCH (22:09)
[2021-06-08] MEDS: SOLU-MEDROL 125 MG IVP SCH (22:14)
[2021-06-09] MEDS: SOLU-MEDROL 125 MG IVP SCH ×2 (03:05→08:59)
[2021-06-09 04:12] LABS: BASOPHILS % (AUTO) 0.3 % (0.0-3.0); HEMATOCRIT 41.4 % (37.0-47.0); HEMOGLOBIN 13.2 g/dl (12.0-16.0); IMMATURE GRANULOCYTE % (AUTO) 0.6 % (0.0-5.0); LYMPHOCYTES # (AUTO) 0.9 K/uL (0.60-3.4); LYMPHOCYTES % (AUTO) 23.5 (10.0-50.0); MEAN CORPUSCULAR HEMOGLOBIN 29.5 pg (27.0-31.0); MEAN CORPUSCULAR HGB CONC 31.9 (31.8-35.4); MEAN CORPUSCULAR VOLUME 92.4 fl (81.0-99.0); MONOCYTES # (AUTO) 0.3 K/uL (0.4-2.0); MONOCYTES % (AUTO) 7.2 (0-10); NEUTROPHILS # (AUTO) 2.5 K/ul (2.0-6.9); NEUTROPHILS % (AUTO) 68.4 % (42.2-75.2); PLATELET COUNT 268 10^3/uL (140-440); RDW COEFFICIENT OF VARIATION 12.7 % (11.6-14.8); RED BLOOD COUNT 4.48 10^6/ul (4.20-5.40); WHITE BLOOD COUNT 3.62 K/ul (4.6-10.2)
[2021-06-09 04:25] LABS: ALANINE AMINOTRANSFERASE 16.7 U/L (0-35); ALBUMIN 4.02 g/dL (3.5-5.0); ALKALINE PHOSPHATASE 77.3 U/L (53-141); ASPARTATE AMINO TRANSFERASE 30.8 U/L (14-36); BILIRUBIN,TOTAL 0.41 mg/dL (0.2-1.3); BLOOD UREA NITROGEN 12.2 mg/dL (7-17); CALCIUM 9.02 mg/dL (8.4-10.2); CARBON DIOXIDE 25.4 mmol/L (22-30.0); CHLORIDE 103.5 mmol/L (98-107); CREATININE 0.48 mg/dL (0.60-1.30); GLUCOSE 121.5 mg/dL (74-106); POTASSIUM 4.44 mmol/L (3.5-5.1); SODIUM 136.1 mmol/L (134.5-145); TOTAL PROTEIN 7.16 g/dL (6.3-8.2)
[2021-06-09 04:35] LABS: TROPONIN I 0.334 ng/ml (0.0000-0.120)
[2021-06-09] MEDS: DUONEB NEB SCH ×3 (04:45→13:47)
[2021-06-09] MEDS ORDERED: ATROPINE SULFATE PFS IVP PRN (07:07)
[2021-06-09] MEDS ORDERED: NITROSTAT SL PRN (07:07)
[2021-06-09] MEDS ORDERED: TYLENOL PO PRN (07:07)
[2021-06-09] MEDS ORDERED: PRILOSEC PO SCH (08:00)
[2021-06-09] MEDS ORDERED: LASIX IVP STA (08:29)
[2021-06-09 08:56] LABS: BILIRUBIN,URINE Negative (NEGATIVE); CLARITY,URINE Clear (CLEAR); COLOR,URINE Yellow (YELLOW); GLUCOSE, URINE (UA) Negative (NEGATIVE); KETONES,URINE Trace (NEGATIVE); LEUKOCYTE ESTERASE ,URINE Trace (NEGATIVE); NITRITE,URINE Negative (NEGATIVE); PH,URINE 5.5 (5-9); PROTEIN,URINE Negative (NEGATIVE); URINE, BLOOD Negative (NEGATIVE); UROBILINOGEN,URINE 0.2 (0.2)
[2021-06-09] MEDS ORDERED: PLAVIX PO SCH (09:00)
[2021-06-09] MEDS ORDERED: LIPITOR PO SCH (09:00)
[2021-06-09] MEDS ORDERED: TRIGLIDE PO SCH (09:00)
[2021-06-09] MEDS ORDERED: NON-FORMULARY MEDICATION (Bupropion Hcl 100 mg tablet) PO SCH (09:00)
[2021-06-09 09:04] LABS: BACTERIA,URINE 1+ (NOT PRESENT); SQUAMOUS EPITHELIAL CELL,UR 0-2 (0-5)
[2021-06-09 09:09] LABS: CREATINE KINASE 116.5 U/L (30-135)
[2021-06-09 09:09] LABS: ABG O2 HGB 86.8 % (95-100); BEecf 0 (-2.0-3.0); COHb 2.3 (0.5-1.5); HCO3 24.8 (21-28); MetHb 1.8 (0-1.5); sO2 86.4 % (94-98); tHb 13.6 g/dl (11.7-17.4)
[2021-06-09 09:27] LABS: CREATINE KINASE MB 3.35 ng/ml (0.0-2.38)
[2021-06-09] MEDS: ZESTRIL PO SCH (09:35)
[2021-06-09] MEDS: NEURONTIN PO SCH ×2 (09:35→13:27)
[2021-06-09 09:40] LABS: THYROID STIMULATING HORMONE 0.072 uIU/L (0.465-4.68)
--- NOTE | 2021-06-09 12:35 | US ---
EXAM: Ultrasound bilateral carotid duplex. HISTORY: Weakness. COMPARISON: None. TECHNIQUE: A duplex Doppler study was performed consisting of integrated two dimensional (2D) real-t stas imaging color flow Doppler and Doppler spectral analysis utilizing linear array probes. FINDINGS: Please note that estimates of internal carotid artery stenoses are based upon NASCET crite antony. Right carotid: Calcified [place] without 50% or greater stenosis. Peak systolic velocity measureme nt in the right internal carotid artery is 0.88 meters per second. Right internal to common carotid artery peak systolic velocity ratio measures 1.1. End diastolic velocity measurement in the right in ternal carotid artery is 0.39 meters per second. Flow in the right vertebral artery is antegrade. Left carotid: Calcified [place] without 50% or greater stenosis. Peak systolic velocity measuremen t in the left internal carotid artery is 0.79 meters per second. Left internal to common carotid art monie peak systolic velocity ratio measures 1.5. End diastolic velocity measurement in the left real estate intern al carotid artery measures 0.21 meters per second. Flow in the left vertebral artery is retrograde. IMPRESSION: 1. Mild, less than 50%, right and left internal carotid artery stenoses. 2. Retrograde flow in the left vertebral artery consistent with subclavian steal, most likely due to proximal left subclavian artery stenosis. 3. Antegrade flow in the right vertebral artery.
--- NOTE | 2021-06-09 12:51 | CT ---
Exam: Chest CT without and with IV contrast. Technique: Chest CT was performed before and after intravenous contrast administration. Multiplanar reformats were made. History: Shortness of breath. Comparison: Chest CT 08/14/2017. FINDINGS: Lungs/Pleura: Moderate centrilobular emphysematous changes. Patchy ground-glass and centrilobular no dules in both lungs. Stable 6 mm left superior lower lobe nodule on image 24 and 4 mm lingular nodul e on image 41, likely benign. Status post left upper lobectomy. Peripheral atelectasis in the middle lobe. No pleural effusion. Mediastinum: Calcified mediastinal and hilar lymph nodes consistent with chronic granulomatous diseas e. Cardiovascular: Trace pericardial effusion. Atherosclerosis of the aorta and branches. Coronary calci fications. Chest wall, thoracic inlet, and axillae: No mass or adenopathy. Upper abdomen and GE junction: Small duodenal diverticulum. Mild distension of the bile ducts and ga llbladder. Calcified granulomas in the spleen. Bones: Post thoracotomy changes in the left chest wall. IMPRESSION: 1. Moderate emphysema. 2. Moderate atherosclerosis. 3. Chronic granulomatous disease. All CT scans are performed using dose optimization techniques as appropriate to the performed exam an d include at least one of the following: Automated exposure control, adjustment of the mA and/or kV according t o size, and the use of iterative reconstruction technique.
[2021-06-09 13:49] VITALS: BP 90/64; TEMP 98.2
--- NOTE | 2021-06-18 10:58 | CONS ---
DATE OF SERVICE: 06/09/21 SUBJECTIVE: I was asked for consultation on this patient but the patient transferred to [facility] before I got to see the patient. Consultation was ordered on 06/08/2021 and I was [place] of country. I arrived in [place] on 06/09/2021 in the afternoon. I was never notified about this consult by attending physician or nursing staff. TIME SPENT: More than 30 minutes. Plan and coordination of the patient's care discussed in the presence of nurse. BRIDGETTE
--- NOTE | 2021-07-27 05:22 | PCM.DC ---
Final Diagnosis: Medications at Discharge: Ambulatory Orders Medication Instructions Recorded hydrocodone 10 mg-acetaminophen 1 ea PO PRN PRN 03/14/14 325 mg tablet ([place]) gabapentin 400 mg capsule 400 mg PO QID tab-cap 02/25/17 (Neurontin) atorvastatin 20 mg tablet (Lipitor) 20 mg PO DAILY #90 tab-cap 05/20/21 clopidogrel 75 mg tablet (Plavix) 75 mg PO DAILY 90 Days #90 tab-cap 05/20/21 fenofibrate 54 mg tablet 54 mg PO DAILY #90 tab-cap 05/20/21 lisinopril 20 mg tablet 20 mg PO BID #180 tab-cap 05/20/21 omeprazole 20 mg capsule,delayed See Rx Instructions .ROUTE 05/20/21 release .COMPLEX #90 capsule buspirone 7.5 mg tablet 7.5 mg PO .daily PRN #30 tab 06/14/21 albuterol sulfate 2.5 mg (3 mL) INHALATION Q4-6H PRN 06/23/21 #180 ml fluticasone fur. 100 mcg-umeclid 1 inh INHALATION Q24H #28 ea 06/29/21 62.5 mcg-vilant 25 mcg inhalat.powder (Trelegy Ellipta) benzonatate 200 mg capsule 200 mg PO BID-TID PRN #60 cap 07/06/21 nystatin 100,000 unit/mL oral 5 ml PO TID #200 ml 07/06/21 suspension albuterol sulfate 90 mcg/actuation 2 puff INHALATION Q4-6H PRN #18 g 07/07/21 aerosol inhaler (Ventolin HFA) bupropion HCl 100 mg tablet 100 mg PO TID 90 Days #270 tab 07/20/21
== END 2021-06-09 14:08 | disposition short-term general hospital (02) ==
LOC: ED 11:31 → MEDSURG A 19:57 → INTOOBSV 19:57
PROVIDERS: ADMIT Emergency Medicine; ATTEND Emergency Medicine
DX: R05.9 Cough, unspecified; I65.23 Occlusion and stenosis of bilateral carotid arteries; B97.4 Respiratory syncytial virus as the cause of diseases classified elsewhere; R79.89 Other specified abnormal findings of blood chemistry; J96.00 Acute respiratory failure, unspecified whether with hypoxia or hypercapnia; R50.9 Fever, unspecified; Z79.899 Other long term (current) drug therapy; Z20.822 Contact with and (suspected) exposure to COVID-19; J44.1 Chronic obstructive pulmonary disease with (acute) exacerbation